=== PATIENT | male | born 1975 | race Two or more races ===

== ENCOUNTER 2022-11-06 18:53 | Inpatient (IN) | payer OTHER ==
[2022-11-06 19:44] VITALS: BMI 27.8
[2022-11-06] MEDS ORDERED: LORazepam 1 MG TABLET PO ONE (20:56)
[2022-11-06] MEDS ORDERED: BISMUTH SUBSALICYLATE 524 MG/30 ML PO PRN (21:24)
[2022-11-06] MEDS ORDERED: NALOXONE HCL 0.4 MG/ML VIAL IM PRN (21:24)
[2022-11-06] MEDS ORDERED: LOPERAMIDE HCL 2 MG CAPSULE PO PRN (21:24)
[2022-11-06] MEDS ORDERED: IBUPROFEN 600 MG TABLET (FP) PO PRN (21:24)
[2022-11-06] MEDS ORDERED: ACETAMINOPHEN 325 MG TABLET (FP) PO PRN (21:24)
[2022-11-06] MEDS ORDERED: MAG HYDROX/AL HYDROX/SIMETH 30 ML UNIT-DOSE CUP PO PRN (21:24)
[2022-11-06] MEDS ORDERED: IBUPROFEN 400 MG TABLET (FP) PO PRN (21:24)
[2022-11-06] MEDS ORDERED: BENZONATATE 200 MG CAPSULE PO PRN (21:24)
[2022-11-06] MEDS ORDERED: POLYETHYLENE GLYCOL (HEALTHYLAX) 3350 17 GM PACKET PO PRN (21:24)
[2022-11-06] MEDS ORDERED: MAGNESIUM HYDROX 2400MG/30ML ORAL SUSPENSION 30 ML CUP PO PRN (21:24)
[2022-11-06] MEDS ORDERED: DICYCLOMINE HCL 10 MG CAPSULE PO PRN (21:24)
[2022-11-06] MEDS ORDERED: NALOXONE HCL (KLOXXADO) 8 MG SPRAY NS PRN (21:24)
[2022-11-06] MEDS ORDERED: BENZOCAINE/MENTHOL (CHLORASEPTIC ) LOZENGE MM PRN (21:24)
[2022-11-06] MEDS ORDERED: LORazepam 1 MG TABLET PO PRN (21:24)
[2022-11-06] MEDS ORDERED: ONDANSETRON *ODT* 4 MG TABLET SL PRN (21:24)
[2022-11-06] MEDS ORDERED: guaiFENesin 600 MG TABLET.ER (FP) PO PRN (21:24)
[2022-11-06] MEDS ORDERED: MELATONIN 5 MG TABLETS PO SCH (22:00)
[2022-11-07] MEDS: LORazepam 2 MG TABLET PO SCH ×5 (00:15→22:07)
[2022-11-07] MEDS: THIAMINE HCL 100 MG TABLET (FP) PO SCH ×2 (00:17→22:07)
[2022-11-07] MEDS: PRENATAL VITAMINS W/ FOLIC ACID TABLET (FP) PO SCH (10:20)
[2022-11-07 11:38] LABS: HEMATOCRIT 31.1 % (35.4-49); HEMOGLOBIN 11.4 GM/dL (11.7-16.9); MCH 33.1 pg (25.7-33.7); MCHC 36.7 g/dl (32.0-35.9); MEAN CELL VOLUME 90.2 fl (80-96); MEAN PLT VOLUME 8.9 fl (7.5-11.1); PLATELET COUNT 136 10^3/uL (134-434); RBC 3.45 M/mm3 (4.00-5.60); WHITE BLOOD COUNT 2.6 K/mm3 (4.0-10.0)
[2022-11-07 11:56] LABS: POTASSIUM 3.1 mmol/L (3.5-5.1)
[2022-11-07 12:20] LABS: ALBUMIN 3.6 g/dl (3.4-5.0); BLOOD UREA NITROGEN 9.7 mg/dL (7-18); CALCIUM 8.4 mg/dL (8.5-10.1)
[2022-11-07 12:23] LABS: CREATININE 0.5 mg/dL (0.55-1.3)
[2022-11-07 12:25] LABS: BILIRUBIN,TOTAL 1.8 mg/dL (0.2-1); TOT PROT 6.7 g/dl (6.4-8.2)
[2022-11-07] MEDS ORDERED: MELATONIN 5 MG TABLETS PO SCH (22:00)
[2022-11-07] MEDS ORDERED: NADOLOL 20 MG TABLET (FP) PO SCH (22:00)
[2022-11-08] MEDS: LORazepam 1 MG TABLET PO SCH ×2 (05:08→10:24)
[2022-11-08 06:10] VITALS: RESP 18
[2022-11-08] MEDS: PRENATAL VITAMINS W/ FOLIC ACID TABLET (FP) PO SCH (10:23)
[2022-11-08] MEDS ORDERED: POTASSIUM CHLORIDE ORAL LIQUID 20 MEQ/15 ML PO ONE ×2 (11:27→18:00)
[2022-11-08 13:09] VITALS: BP 118/75; PULSE 72; TEMP 97.4
[2022-11-09] MEDS ORDERED: LORazepam 0.5 MG TABLET PO PRN
[2022-11-09] MEDS ORDERED: LORazepam 0.5 MG TABLET PO SCH (05:00)
[2022-11-10] MEDS ORDERED: LORazepam 0.5 MG TABLET PO ONE (05:00)
== END 2022-11-08 13:51 | disposition left against medical advice (07) | DRG 770 ==
LOC: YASAS 18:53 → Y6N 21:36
PROVIDERS: ADMIT Allergy & Immunology; ATTEND Surgery
PROC: HZ2ZZZZ Detoxification Services for Substance Abuse Treatment (ICD-10-PCS; principal; 2022-11-06)
DX: F10.230 Alcohol dependence with withdrawal, uncomplicated (principal); F10.282 Alcohol dependence with alcohol-induced sleep disorder; F19.24 Other psychoactive substance dependence with psychoactive substance-induced mood disorder; E87.6 Hypokalemia; I10 Essential (primary) hypertension; K74.60 Unspecified cirrhosis of liver; R56.9 Unspecified convulsions; R73.03 Prediabetes; Z88.0 Allergy status to penicillin
CPT/HCPCS: 36415; 80053; 82962; 85027; 86780; 93005; 93010; C9803-CS; U0003; U0005

== ENCOUNTER 2022-12-05 17:39 | Inpatient (IN) | payer OTHER ==
[2022-12-05 18:33] VITALS: BMI 27.8
[2022-12-05] MEDS ORDERED: TRIMETHOBENZAMIDE HCL 200MG/2ML INJ IM ONE ×2 (18:38→18:45)
[2022-12-05] MEDS ORDERED: LORazepam 2 MG/ML SDV VIAL IM ONE (18:45)
[2022-12-05] MEDS ORDERED: BISMUTH SUBSALICYLATE 524 MG/30 ML PO PRN (19:05)
[2022-12-05] MEDS ORDERED: NALOXONE HCL 0.4 MG/ML VIAL IM PRN (19:05)
[2022-12-05] MEDS ORDERED: MAGNESIUM HYDROX 2400MG/30ML ORAL SUSPENSION 30 ML CUP PO PRN (19:05)
[2022-12-05] MEDS ORDERED: NALOXONE HCL (KLOXXADO) 8 MG SPRAY NS PRN (19:05)
[2022-12-05] MEDS ORDERED: BENZONATATE 200 MG CAPSULE PO PRN (19:05)
[2022-12-05] MEDS ORDERED: MAG HYDROX/AL HYDROX/SIMETH 30 ML UNIT-DOSE CUP PO PRN (19:05)
[2022-12-05] MEDS ORDERED: ACETAMINOPHEN 325 MG TABLET (FP) PO PRN (19:05)
[2022-12-05] MEDS ORDERED: IBUPROFEN 400 MG TABLET (FP) PO PRN (19:05)
[2022-12-05] MEDS ORDERED: POLYETHYLENE GLYCOL (HEALTHYLAX) 3350 17 GM PACKET PO PRN (19:05)
[2022-12-05] MEDS ORDERED: P-EPHED 60MG/TRIPROLIDI 2.5MG TABLET PO PRN (19:05)
[2022-12-05] MEDS ORDERED: guaiFENesin 600 MG TABLET.ER (FP) PO PRN (19:05)
[2022-12-05] MEDS ORDERED: DICYCLOMINE HCL 10 MG CAPSULE PO PRN (19:05)
[2022-12-05] MEDS ORDERED: ONDANSETRON *ODT* 4 MG TABLET SL PRN (19:05)
[2022-12-05] MEDS ORDERED: IBUPROFEN 600 MG TABLET (FP) PO PRN (19:05)
[2022-12-05] MEDS ORDERED: hydrOXYzine PAMOATE 25 MG CAPSULE (FP) PO PRN (19:05)
[2022-12-05] MEDS ORDERED: BENZOCAINE/MENTHOL (CHLORASEPTIC ) LOZENGE MM PRN (19:05)
[2022-12-05] MEDS ORDERED: chlordiazePOXIDE HCL 25 MG CAPSULE PO PRN (19:08)
[2022-12-05] MEDS ORDERED: chlordiazePOXIDE HCL 25 MG CAPSULE PO ONE (19:15)
[2022-12-05] MEDS ORDERED: chlordiazePOXIDE HCL 25 MG CAPSULE ONE (19:43)
[2022-12-05] MEDS: NADOLOL 20 MG TABLET (FP) PO SCH (22:10)
[2022-12-05] MEDS: THIAMINE HCL 100 MG TABLET (FP) PO SCH (22:10)
[2022-12-05] MEDS: MELATONIN 5 MG TABLETS PO SCH (22:10)
[2022-12-05] MEDS: chlordiazePOXIDE HCL 25 MG CAPSULE PO SCH (22:11)
[2022-12-05] MEDS: levETIRAcetam 500 MG TABLET (FP) PO SCH (22:11)
[2022-12-06] MEDS: chlordiazePOXIDE HCL 25 MG CAPSULE PO SCH ×4 (05:39→22:19)
[2022-12-06] MEDS: LOPERAMIDE HCL 2 MG CAPSULE PO PRN ×3 (05:42→19:39)
[2022-12-06] MEDS: PRENATAL VITAMINS W/ FOLIC ACID TABLET (FP) PO SCH (10:10)
[2022-12-06] MEDS: levETIRAcetam 500 MG TABLET (FP) PO SCH ×2 (10:10→22:18)
[2022-12-06] MEDS: NADOLOL 20 MG TABLET (FP) PO SCH (22:18)
[2022-12-06] MEDS: THIAMINE HCL 100 MG TABLET (FP) PO SCH (22:18)
[2022-12-06] MEDS: MELATONIN 5 MG TABLETS PO SCH (22:18)
[2022-12-07] MEDS ORDERED: chlordiazePOXIDE HCL 25 MG CAPSULE PO SCH (05:00)
[2022-12-07] MEDS: levETIRAcetam 500 MG TABLET (FP) PO SCH (09:37)
[2022-12-07] MEDS: PRENATAL VITAMINS W/ FOLIC ACID TABLET (FP) PO SCH (09:37)
[2022-12-07] MEDS: LOPERAMIDE HCL 2 MG CAPSULE PO PRN (09:37)
[2022-12-07 09:50] VITALS: BP 117/73; PULSE 63; RESP 19; TEMP 97.3
[2022-12-08] MEDS ORDERED: chlordiazePOXIDE HCL 10 MG CAPSULE PO PRN
[2022-12-08] MEDS ORDERED: chlordiazePOXIDE HCL 10 MG CAPSULE PO SCH (05:00)
[2022-12-09] MEDS ORDERED: chlordiazePOXIDE HCL 10 MG CAPSULE PO SCH (05:00)
[2022-12-10] MEDS ORDERED: chlordiazePOXIDE HCL 10 MG CAPSULE PO ONE (05:00)
== END 2022-12-07 10:03 | disposition left against medical advice (07) | DRG 770 ==
LOC: YASAS 17:39 → Y3N 19:03
PROVIDERS: ADMIT Allergy & Immunology; ATTEND Surgery
PROC: HZ2ZZZZ Detoxification Services for Substance Abuse Treatment (ICD-10-PCS; principal; 2022-12-05)
DX: F10.230 Alcohol dependence with withdrawal, uncomplicated (principal); I10 Essential (primary) hypertension; K29.20 Alcoholic gastritis without bleeding; R73.03 Prediabetes; Z88.0 Allergy status to penicillin
CPT/HCPCS: Q0162

== ENCOUNTER 2023-03-18 14:55 | Inpatient (IN) | payer OTHER ==
[2023-03-18 15:42] VITALS: BMI 30.4
[2023-03-18] MEDS ORDERED: LORazepam 2 MG/ML SDV VIAL IM ONE (17:47)
[2023-03-18] MEDS ORDERED: TRIMETHOBENZAMIDE HCL 200MG/2ML INJ IM ONE (17:57)
[2023-03-18] MEDS ORDERED: chlordiazePOXIDE HCL 25 MG CAPSULE PO PRN (17:57)
[2023-03-18] MEDS ORDERED: chlordiazePOXIDE HCL 25 MG CAPSULE PO ONE (18:00)
[2023-03-18] MEDS ORDERED: LOPERAMIDE HCL 2 MG CAPSULE PO ONE (18:03)
[2023-03-18] MEDS ORDERED: IBUPROFEN 600 MG TABLET (FP) PO PRN (18:05)
[2023-03-18] MEDS ORDERED: BENZOCAINE/MENTHOL (CHLORASEPTIC ) LOZENGE MM PRN (18:05)
[2023-03-18] MEDS ORDERED: BISMUTH SUBSALICYLATE 524 MG/30 ML PO PRN (18:05)
[2023-03-18] MEDS ORDERED: ACETAMINOPHEN 325 MG TABLET (FP) PO PRN (18:05)
[2023-03-18] MEDS ORDERED: BENZONATATE 200 MG CAPSULE PO PRN (18:05)
[2023-03-18] MEDS ORDERED: DICYCLOMINE HCL 10 MG CAPSULE PO PRN (18:05)
[2023-03-18] MEDS ORDERED: IBUPROFEN 400 MG TABLET (FP) PO PRN (18:05)
[2023-03-18] MEDS ORDERED: MAG HYDROX/AL HYDROX/SIMETH 30 ML UNIT-DOSE CUP PO PRN (18:05)
[2023-03-18] MEDS ORDERED: guaiFENesin 600 MG TABLET.ER (FP) PO PRN (18:05)
[2023-03-18] MEDS ORDERED: MAGNESIUM HYDROX 2400MG/30ML ORAL SUSPENSION 30 ML CUP PO PRN (18:05)
[2023-03-18] MEDS ORDERED: METHOCARBAMOL 500 MG TABLET PO PRN (18:05)
[2023-03-18] MEDS ORDERED: P-EPHED 60MG/TRIPROLIDI 2.5MG TABLET PO PRN (18:05)
[2023-03-18] MEDS ORDERED: POLYETHYLENE GLYCOL (HEALTHYLAX) 3350 17 GM PACKET PO PRN (18:05)
[2023-03-18] MEDS ORDERED: chlordiazePOXIDE HCL 25 MG CAPSULE ONE (18:28)
[2023-03-18] MEDS: MELATONIN 5 MG TABLETS PO SCH (22:44)
[2023-03-18] MEDS: hydrOXYzine PAMOATE 25 MG CAPSULE (FP) PO PRN (22:45)
[2023-03-18] MEDS: LOPERAMIDE HCL 2 MG CAPSULE PO PRN (22:45)
[2023-03-18] MEDS: levETIRAcetam 500 MG TABLET (FP) PO SCH (22:45)
[2023-03-18] MEDS: THIAMINE HCL 100 MG TABLET (FP) PO SCH (22:45)
[2023-03-18] MEDS: chlordiazePOXIDE HCL 25 MG CAPSULE PO SCH (22:46)
[2023-03-19] MEDS: chlordiazePOXIDE HCL 25 MG CAPSULE PO SCH ×4 (05:47→22:08)
[2023-03-19] MEDS: levETIRAcetam 500 MG TABLET (FP) PO SCH ×2 (10:29→22:09)
[2023-03-19] MEDS: PRENATAL VITAMINS W/ FOLIC ACID TABLET (FP) PO SCH (10:29)
[2023-03-19] MEDS: ONDANSETRON *ODT* 4 MG TABLET SL PRN ×2 (10:32→17:37)
[2023-03-19 11:05] LABS: HEMATOCRIT 32.1 % (35.4-49); HEMOGLOBIN 11.3 GM/dL (11.7-16.9); MCHC 35.4 g/dl (32.0-35.9); MEAN CELL VOLUME 93.4 fl (80-96); MEAN PLT VOLUME 8.4 fl (7.5-11.1); PLATELET COUNT 120 10^3/uL (134-434); RBC 3.43 M/mm3 (4.00-5.60); RDW 12.9 % (11.9-15.9); WHITE BLOOD COUNT 2.7 K/mm3 (4.0-10.0)
[2023-03-19 11:28] LABS: POTASSIUM 3.6 mmol/L (3.5-5.1)
[2023-03-19 11:39] LABS: ALBUMIN 3.4 g/dl (3.4-5.0)
[2023-03-19 11:40] LABS: BLOOD UREA NITROGEN 14.8 mg/dL (7-18)
[2023-03-19 11:42] LABS: CREATININE 0.6 mg/dL (0.55-1.3)
[2023-03-19 11:44] LABS: BILIRUBIN,TOTAL 0.4 mg/dL (0.2-1); TOT PROT 6.4 g/dl (6.4-8.2)
[2023-03-19] MEDS: PANTOPRAZOLE 40 MG TABLET PO SCH (12:34)
[2023-03-19] MEDS: LOPERAMIDE HCL 2 MG CAPSULE PO PRN (17:37)
[2023-03-19 21:54] VITALS: RESP 17
[2023-03-19] MEDS: THIAMINE HCL 100 MG TABLET (FP) PO SCH (22:07)
[2023-03-19] MEDS: MELATONIN 5 MG TABLETS PO SCH (22:07)
[2023-03-19] MEDS: hydrOXYzine PAMOATE 25 MG CAPSULE (FP) PO PRN (22:09)
[2023-03-20] MEDS: chlordiazePOXIDE HCL 25 MG CAPSULE PO SCH ×2 (05:33→10:07)
[2023-03-20 06:31] VITALS: BP 104/69; PULSE 67; TEMP 97.6
[2023-03-20] MEDS: PANTOPRAZOLE 40 MG TABLET PO SCH (09:21)
[2023-03-20] MEDS: levETIRAcetam 500 MG TABLET (FP) PO SCH (09:21)
[2023-03-20] MEDS: PRENATAL VITAMINS W/ FOLIC ACID TABLET (FP) PO SCH (09:21)
[2023-03-21] MEDS ORDERED: chlordiazePOXIDE HCL 10 MG CAPSULE PO PRN
[2023-03-21] MEDS ORDERED: chlordiazePOXIDE HCL 10 MG CAPSULE PO SCH (05:00)
[2023-03-22] MEDS ORDERED: chlordiazePOXIDE HCL 10 MG CAPSULE PO SCH (05:00)
[2023-03-23] MEDS ORDERED: chlordiazePOXIDE HCL 10 MG CAPSULE PO ONE (05:00)
== END 2023-03-20 09:28 | disposition left against medical advice (07) | DRG 770 ==
LOC: YASAS 14:55 → Y3N 18:08
PROVIDERS: ADMIT Allergy & Immunology; ATTEND Surgery
PROC: HZ2ZZZZ Detoxification Services for Substance Abuse Treatment (ICD-10-PCS; principal; 2023-03-18)
DX: F10.230 Alcohol dependence with withdrawal, uncomplicated (principal); F10.282 Alcohol dependence with alcohol-induced sleep disorder; F19.24 Other psychoactive substance dependence with psychoactive substance-induced mood disorder; I10 Essential (primary) hypertension; R73.03 Prediabetes; Z87.19 Personal history of other diseases of the digestive system; Z88.0 Allergy status to penicillin
CPT/HCPCS: 36415; 80053; 85027; 86780; 87635; Q0162